=== PATIENT | female | born 1980 | race Two or more races ===

== ENCOUNTER 2022-04-04 11:11 | Emergency (ER) | payer OTHER ==
[~2022-04-04] VITALS: Ht 165.1 cm; Wt 60.3 kg
[2022-04-04] MEDS ORDERED: TUSSIN DM LIQU118 ML PO (14:10)
[2022-04-04] MEDS ORDERED: AMOX-CLAV 875-1 EACH PO (14:10)
[2022-04-04] MEDS ORDERED: CLARITIN-D 121 EACH PO (14:10)
== END 2022-04-04 14:27 | disposition home or self-care (01) ==
LOC: ER 11:11
DX: J06.9 Acute upper respiratory infection, unspecified (principal); R09.81 Nasal congestion; R53.81 Other malaise; Z20.822 Contact with and (suspected) exposure to COVID-19

== ENCOUNTER → 2024-09-17 | Emergency (ER) | payer OTHER ==
[~2024-09-17] VITALS: Ht 165.1 cm; Wt 60.8 kg
[~2024-09-17] MED LIST: AMOX-CLAV 875-1 EACH PO; CLARITIN-D 121 EACH PO; TUSSIN DM LIQU118 ML PO
== END | disposition left against medical advice (07) ==
LOC: ER 15:33
DX: Z53.21 Procedure and treatment not carried out due to patient leaving prior to being seen by health care provider (principal)